=== PATIENT | male | born 1985 | race Caucasian/White ===

== ENCOUNTER 2023-07-24 09:11 | Outpatient (CLI) | payer OTHER | END 2023-07-24 09:12 | disposition home or self-care (01) | LOC: CSHULT 09:11 | PROVIDERS: ATTEND Physician Assistant Medical | DX: K70.30 Alcoholic cirrhosis of liver without ascites (principal); K21.9 Gastro-esophageal reflux disease without esophagitis | CPT/HCPCS: 76705 ==